=== PATIENT | female | born 1955 | race Caucasian/White ===

== ENCOUNTER 2020-01-29 11:46 | Emergency (ER) | payer MEDICAID ==
--- NOTE | 2020-01-29 12:41 | EDM.PDOC ---
ED HPI GENERAL MEDICAL PROBLEM - General Chief Complaint: General Stated Complaint: FALL Time Seen by Provider: 01/29/20 12:31 Source of Information: Reports: Patient History Limitations: Reports: No Limitations - History of Present Illness INITIAL COMMENTS - FREE TEXT/NARRATIVE: Patient presents with headache, neck pain and right wrist pain after falling on a patch of ice around 0900 this morning. She says she landed flat on her back and hit back of head. Denies LOC or vision change. No other injuries. She has an old right wrist injury with ORIF from 25-30 years ago. Head Pain Score (Numeric/FACES): 2 - Related Data Allergies Allergy/AdvReac Type Severity Reaction Status Date / Time grass pollen Allergy Itching Verified 01/29/20 11:57 Home Meds: Home Meds Albuterol/Ipratropium [DuoNeb 3.0-0.5 MG/3 ML] 3 ml .XX Q6HR PRN 01/29/20 [History] Alendronate Sodium [Fosamax] 70 mg PO WEEKLY 01/29/20 [History] Aspirin [Lo-Dose Aspirin EC] 81 mg PO DAILY 01/29/20 [History] Cholecalciferol (Vitamin D3) [Vitamin D3] 2,000 unit PO DAILY 01/29/20 [History] ClonazePAM [KlonoPIN] 0.5 mg PO ASDIRECTED PRN 01/29/20 [History] Cyanocobalamin (Vitamin B-12) [Cyanocobalamin Injection] 1,000 mcg IJ ASDIRECTED 01/29/20 [History] Empagliflozin/Metformin HCl [Synjardy Xr 10-1,000 mg Tablet] 1 each PO ACBREAKFAST 01/29/20 [History] Furosemide [Lasix] 20 mg PO DAILY 01/29/20 [History] Gabapentin [Neurontin] 300 mg PO BEDTIME 01/29/20 [History] Levothyroxine 150 mcg PO ACBREAKFAST 01/29/20 [History] Omeprazole 20 mg PO ACBREAKFAST 01/29/20 [History] lisinopriL [Lisinopril] 10 mg PO DAILY 01/29/20 [History] Past Medical History Cardiovascular History: Reports: Hypertension Gastrointestinal History: Reports: GERD Endocrine/Metabolic History: Reports: Diabetes, Type II, Osteoporosis - Past Surgical History GI Surgical History: Reports: Cholecystectomy Other GI Surgeries/Procedures: Umbilicus surgery Female Surgical History: Reports: Hysterectomy Musculoskeletal Surgical History: Reports: Carpal Tunnel, Other (See Below) Other Musculoskeletal Surgeries/Procedures:: Right wrist surgery Social & Family History - Tobacco Use Tobacco Use Status *Q: Never Tobacco User - Recreational Drug Use Recreational Drug Use: No ED ROS GENERAL - Review of Systems Review Of Systems: See Below Constitutional: Denies: Fever, Chills, Malaise, Weakness HEENT: Denies: Ear Pain, Nosebleed, Throat Pain, Vision Change Respiratory: Denies: Shortness of Breath, Cough Cardiovascular: Denies: Chest Pain, Syncope GI/Abdominal: Reports: Constipation (chronic). Denies: Abdominal Pain, Nausea, Vomiting : Denies: Flank Pain Musculoskeletal: Reports: Neck Pain, Back Pain (general, not localized). Denies: Shoulder Pain, Arm Pain, Leg Pain, Foot Pain Skin: Denies: Cyanosis, Jaundice, Mottled, Pallor, Diaphoresis Neurological: Reports: Headache. Denies: Confusion, Dizziness, Seizure, Syncope, Trouble Speaking, Difficulty Walking Psychiatric: Denies: Agitation, Anxiety, Confusion Hematologic/Lymphatic: Denies: Easy Bleeding ED EXAM, GENERAL - Physical Exam Exam: See Below Exam Limited By: No Limitations General Appearance: Alert, WD/WN, No Apparent Distress Eye Exam: Bilateral Eye: EOMI, Normal Inspection, PERRL Ears: Normal External Exam, Normal Canal, Hearing Grossly Normal, Normal TMs Nose: Normal Inspection, No Blood Throat/Mouth: Normal Inspection, Normal Lips, Normal Voice, No Airway Compromise Head: Normocephalic, Other (small contusion on occiput) Neck: Supple, Full Range of Motion, Tender Lateral, Tender Midline (mild, not localized) Respiratory/Chest: No Respiratory Distress, Lungs Clear, Normal Breath Sounds, No Accessory Muscle Use Cardiovascular: Regular Rate, Rhythm, No Murmur GI/Abdominal: Normal Bowel Sounds, Soft, Non-Tender, No Organomegaly, No Distention, No Abnormal Bruit Back Exam: Normal Inspection, Full Range of Motion. No: CVA Tenderness (L), CVA Tenderness (R), Paraspinal Tenderness, Vertebral Tenderness Extremities: Normal Inspection, Normal Range of Motion, Non-Tender (palpation reveals no tenderness), Normal Capillary Refill Neurological: Alert, Oriented, Normal Cognition, No Motor/Sensory Deficits Psychiatric: Normal Affect, Normal Mood Skin Exam: Warm, Dry, Intact, Normal Color, No Rash Course - Vital Signs Last Recorded V/S: Last Vital Signs Temp 97.6 F 01/29/20 11:54 Pulse 87 01/29/20 11:54 Resp 16 01/29/20 11:54 BP 166/71 H 01/29/20 12:28 Pulse Ox 97 01/29/20 11:54 - Orders/Labs/Meds Orders: Active Orders 24 hr Category Date Time Status Cervical Spine wo Cont [CT] Stat Exams 01/29/20 12:02 Ordered Head wo Cont [CT] Stat Exams 01/29/20 12:02 Ordered Wrist Comp Min 3V Rt [CR] Stat Exams 01/29/20 12:03 Ordered - Re-Assessments/Exams Free Text/Narrative Re-Assessment/Exam: 01/29/20 13:39 Xrays and CTs are all okay and without acute findings. Discussed findings, expectations and treatment plan with patient. She is stable at discharge to home. Departure - Departure Time of Disposition: 13:30 Disposition: Home, Self-Care 01 Condition: Good Clinical Impression: Neck pain Head injury without fracture of skull Qualifiers: Encounter type: initial encounter Qualified Code(s): S09.90XA - Unspecified injury of head, initial encounter Fall due to ice or snow Qualifiers: Encounter type: initial encounter Qualified Code(s): W00.9XXA - Unspecified fall due to ice and snow, initial encounter Mild concussion Qualifiers: Encounter type: initial encounter Loss of consciousness presence/duration: without LOC Qualified Code(s): S06.0X0A - Concussion without loss of consciousness, initial encounter - Discharge Information Instructions: Concussion, Adult, [id number], Head Injury, Adult, [id number] Referrals: PCP,Unknown [Primary Care Provider] - Additional Instructions: You can use Tylenol 500-1000 mg and/or Ibuprofen 400-600 mg, up to 3 times a day as needed for pain. Follow up with your PCP in 4-5 days for recheck. Recheck sooner if any worsening. Sepsis Event Note (ED) - Evaluation Sepsis Screening Result: No Definite Risk - Focused Exam Vital Signs: Vital Signs Temp Pulse Resp BP Pulse Ox 01/29/20 12:28 166/71 H 01/29/20 11:54 97.6 F 87 16 182/84 H 97 - My Orders Last 24 Hours: My Active Orders 01/29/20 12:02 Cervical Spine wo Cont [CT] Stat Head wo Cont [CT] Stat 01/29/20 12:03 Wrist Comp Min 3V Rt [CR] Stat - Assessment/Plan Last 24 Hours: My Active Orders 01/29/20 12:02 Cervical Spine wo Cont [CT] Stat Head wo Cont [CT] Stat 01/29/20 12:03 Wrist Comp Min 3V Rt [CR] Stat
--- NOTE | 2020-01-29 12:58 | CR ---
[id number] RAD/RAD Wrist Right 3V Min EXAM: RAD Wrist Right 3V Min INDICATION: FALL. COMPARISON: None. DISCUSSION: Internally fixated healed distal radius fracture without evident hardware complication. Chronic ununited ulnar styloid fracture. Mild to moderate radiocarpal, triscaphe and first carpometacarpal osteoarthritis. No acute fracture or dislocation is identified. IMPRESSION: 1. No acute findings. Boby Vaca MD 01/29/20 [id number] Thank you for allowing us to participate in the care of your patient.
--- NOTE | 2020-01-29 13:00 | CT ---
[id number] CT/CT Head WO IV EXAM: CT Head WO IV CLINICAL DATA: FALL. COMPARISON STUDY: None FINDINGS: No intracranial hemorrhage, extra-axial fluid collection, mass, or acute ischemia. No hydrocephalus. Paranasal sinuses and mastoid air cells are clear. IMPRESSION: No acute intracranial findings. Jessee Sanon MD 01/29/20 [id number] Thank you for allowing us to participate in the care of your patient.
--- NOTE | 2020-01-29 13:16 | CT ---
[id number] CT/CT Cervical Spine WO IV EXAM: CT Cervical Spine WO IV INDICATION: FALL. COMPARISON: None. DISCUSSION: No fracture or compression deformity. Vertebral bodies remain in normal alignment. Cervical spondylosis. Findings include C3-4 through C5-6 grade 1 anterolisthesis. No prevertebral soft tissue edema. Lung apices are clear. IMPRESSION: No acute findings in the cervical spine. Jessee Sanon MD 01/29/20 [id number] Thank you for allowing us to participate in the care of your patient.
== END 2020-01-29 13:52 | disposition home or self-care (01) ==
LOC: KA.ED 11:46
DX: S06.0X0A Concussion without loss of consciousness, initial encounter (principal); M54.2 Cervicalgia; I10 Essential (primary) hypertension; K21.9 Gastro-esophageal reflux disease without esophagitis; E11.9 Type 2 diabetes mellitus without complications; Z79.84 Long term (current) use of oral hypoglycemic drugs; Z91.048 Other nonmedicinal substance allergy status; Z79.82 Long term (current) use of aspirin; Z79.899 Other long term (current) drug therapy; W00.9XXA Unspecified fall due to ice and snow, initial encounter
CPT/HCPCS: 70450; 72125; 73110-RT; 99284; 99284-25

== ENCOUNTER 2021-05-04 12:14 | Emergency (ER) | payer MEDICAID ==
[2021-05-04 14:06] LABS: ANION GAP 11.4 mmol/L (5-15); CHLORIDE,CL 102 mmol/L (98-107); SODIUM,NA 141 mmol/L (136-145)
== END 2021-05-04 14:30 | disposition home or self-care (01) ==
LOC: KA.ED 12:14
DX: K21.00 Gastro-esophageal reflux disease with esophagitis, without bleeding (principal); I10 Essential (primary) hypertension; E11.9 Type 2 diabetes mellitus without complications; E03.9 Hypothyroidism, unspecified; Z91.048 Other nonmedicinal substance allergy status; Z79.82 Long term (current) use of aspirin; Z79.84 Long term (current) use of oral hypoglycemic drugs; Z79.899 Other long term (current) drug therapy
CPT/HCPCS: 36415; 71045; 80053; 82947; 83880; 84484; 85025; 93005; 93010; 99284; 99285-25

== ENCOUNTER 2022-03-20 10:03 | Emergency (ER) | payer MEDICARE, MEDICAID ==
[2022-03-20] MEDS ORDERED: Sodium Chloride 0.9% 10 ML Syringe FLUSH PRN (10:15)
[2022-03-20 10:56] LABS: ANION GAP 9.5 mmol/L (5-15)
== END 2022-03-20 11:45 | disposition home or self-care (01) ==
LOC: KA.ED 10:03
DX: R07.89 Other chest pain (principal); M54.6 Pain in thoracic spine; R05.9 Cough, unspecified; M25.512 Pain in left shoulder; E78.00 Pure hypercholesterolemia, unspecified; I10 Essential (primary) hypertension; K21.9 Gastro-esophageal reflux disease without esophagitis; E11.9 Type 2 diabetes mellitus without complications; E03.9 Hypothyroidism, unspecified; Z91.048 Other nonmedicinal substance allergy status; Z79.82 Long term (current) use of aspirin; Z79.84 Long term (current) use of oral hypoglycemic drugs; Z79.899 Other long term (current) drug therapy
CPT/HCPCS: 36415; 71045; 80053; 84484; 85025; 93005; 93010; 99284; 99285; J3490

== ENCOUNTER 2022-12-11 07:45 | Day surgery (SDC) | payer MEDICARE, MEDICAID ==
[2022-12-11] MEDS ORDERED: Sodium Chloride 0.9% 1,000 ML IV SCH (08:00)
[2022-12-11] MEDS ORDERED: Sodium Chloride 0.9% 10 ML Syringe FLUSH PRN (08:00)
[2022-12-11] MEDS ORDERED: Propofol 200 MG/20 ML SDV ONE (08:40)
[2022-12-11] MEDS ORDERED: ePHEDrine 50 MG/ML SDV ONE (09:01)
== END 2022-12-11 10:58 | disposition home or self-care (01) ==
LOC: KA.SDS 07:45
PROVIDERS: ATTEND Family Medicine
DX: D12.3 Benign neoplasm of transverse colon (principal); K57.30 Diverticulosis of large intestine without perforation or abscess without bleeding; K64.4 Residual hemorrhoidal skin tags; I10 Essential (primary) hypertension; E78.2 Mixed hyperlipidemia; E11.9 Type 2 diabetes mellitus without complications; E03.9 Hypothyroidism, unspecified; E66.01 Morbid (severe) obesity due to excess calories; F19.90 Other psychoactive substance use, unspecified, uncomplicated; K21.9 Gastro-esophageal reflux disease without esophagitis; M85.80 Other specified disorders of bone density and structure, unspecified site; E88.2 Lipomatosis, not elsewhere classified; N32.81 Overactive bladder; F41.1 Generalized anxiety disorder; E55.9 Vitamin D deficiency, unspecified; K59.00 Constipation, unspecified; Z79.890 Hormone replacement therapy; Z79.85 Long-term (current) use of injectable non-insulin antidiabetic drugs; Z79.899 Other long term (current) drug therapy; Z79.84 Long term (current) use of oral hypoglycemic drugs; Z79.82 Long term (current) use of aspirin; Z88.1 Allergy status to other antibiotic agents; Z87.891 Personal history of nicotine dependence
CPT/HCPCS: 00812; 82947; 88305; J2704; J3490; J7030